=== PATIENT | male | born 1970 | race Caucasian/White ===

== ENCOUNTER 2020-06-05 22:06 | Emergency (ER) | payer BC ==
[2020-06-05] MEDS ORDERED: Sodium Chloride 0.9% 10 ML Syringe FLUSH PRN (22:23)
[2020-06-05] MEDS ORDERED: Sodium Chloride 0.9% 2.5 ML Syringe FLUSH PRN (22:23)
[2020-06-05] MEDS ORDERED: Lactated Ringers 1,000 ML IV ONE (22:47)
--- NOTE | 2020-06-05 22:56 | EDM.PDOC ---
ED HPI GENERAL MEDICAL PROBLEM - General Chief Complaint: General Stated Complaint: NOT FEELING "RIGHT" Time Seen by Provider: 06/05/20 22:07 Source of Information: Reports: Patient, Old Records History Limitations: Reports: No Limitations - History of Present Illness INITIAL COMMENTS - FREE TEXT/NARRATIVE: 50-year-old male with past medical history of asthma presenting with lig htheadedness, chest discomfort, and feeling unwell. Patient states that he is not feeling like himself, he feels like "like I was drugged earlier (but denies any alcohol or drug use. He has been feeling intermittently lightheaded for the past few hours but has not experienced syncope. When he was checking into the emergency department, he had about a 1 to 2-minute episode of substernal chest tightness (similar to my prior asthma attacks). This resolved and has not recurred since. He used his albuterol inhaler one time at home without much relief. At present he only complains of mild lightheadedness. He denies any headache, visual disturbance, facial or extremity numbness or weakness, neck stiffness, dysarthria, dysphasia, gait instability, or shortness of breath. No other complaints at this point. chest pain Pain Score (Numeric/FACES): 1 - Related Data Allergies Allergy/AdvReac Type Severity Reaction Status Date / Time No Known Allergies Allergy Verified 06/05/20 22:12 Home Meds: Home Meds Albuterol [Proventil] 2.5 mg .XX ASDIRECTED PRN 02/20/15 [History] Albuterol [Ventolin HFA] 1 - 2 puff INH ASDIRECTED 06/05/20 [History] Fluticasone Propion/Salmeterol [Advair 250-50 Diskus] 1 puff INH ASDIRECTED 06/05/20 [History] Past Medical History Respiratory History: Reports: Asthma - Infectious Disease History Infectious Disease History: Reports: Chicken Pox - Past Surgical History Musculoskeletal Surgical History: Reports: Other (See Below) Other Musculoskeletal Surgeries/Procedures:: right ankle surgery Social & Family History - Family History Family Medical History: Noncontributory Other Cardiac Family History: Myocardial infarction/CAD - Tobacco Use Smoking Status *Q: Never Smoker - Caffeine Use Caffeine Use: Reports: Energy Drinks - Recreational Drug Use Recreational Drug Use: No ED ROS GENERAL - Review of Systems Review Of Systems: See Below Constitutional: Denies: Fever, Chills HEENT: Denies: Vision Change Respiratory: Denies: Shortness of Breath Cardiovascular: Reports: Chest Pain. Denies: Edema, Palpitations, Syncope Endocrine: Reports: No Symptoms GI/Abdominal: Denies: Abdominal Pain, Hematemesis, Hematochezia, Nausea, Vomiting : Denies: Hematuria Musculoskeletal: Denies: Back Pain Skin: Denies: Rash, Lesions Neurological: Reports: Dizziness. Denies: Confusion, Headache, Numbness, Paresthesia, Seizure, Syncope, Tingling, Trouble Speaking, Difficulty Walking, Weakness, Change in Speech, Gait Disturbance Psychiatric: Reports: No Symptoms Hematologic/Lymphatic: Reports: No Symptoms ED EXAM, GENERAL - Physical Exam Exam: See Below Free Text/Narrative:: Vital signs reviewed. Nursing notes reviewed. Constitutional: Awake, alert, non-distressed. Head: Normocephalic, atraumatic. Eyes: EOMI, conjunctiva normal, no discharge, no scleral icterus. Pupils 3 mm bilaterally Ears, Nose, Throat: External ears and nose normal, moist oral mucosa. No thyromegaly Cardiovascular: 2+ radial pulses bilaterally, capillary refill less than 2 seconds. RRR, no M/R/G Pulmonary: normal work of breathing, no accessory muscle use. CTA BL Abdomen/GI: Soft, nontender, nondistended, no guarding or rigidity, no masses. Musculoskeletal: No deformities. Integumentary: Appropriate color for ethnicity, warm, dry, no pallor or jaundice, no rash. Neurologic: Alert, answering questions appropriately, normal speech, no facial droop, moving all extremities well. Psychiatric: Appropriate mood and affect, normal thought process. EKG INTERPRETATION EKG Interpretation Comments: 12-Lead ECG Interpretation Acquired: 10:15 PM Rhythm: Sinus bradycardia Rate: 55 bpm [place]: Normal Intervals: Normal Ectopy: None Ischemic Changes: None apparent RV Strain: No obvious RV strain pattern. ST Segments/T-Waves: Large appearing but asymmetric T waves in leads V2 through V4 Course - Vital Signs Text/Narrative:: Patient hemodynamically stable, afebrile, well-appearing, looks nontoxic. Differential diagnosis includes but is not limited to: CVA, TIA, acute coronary syndrome, arrhythmia, anemia, electrolyte disturbance, volume depletion, thyroid disease, structural cardiac problem, carotid stenosis, drug or alcohol intoxication, etc. Labs reassuring. Normal hemoglobin, normal electrolytes and renal function, negative troponin, normal LFTs. EKG shows normal intervals, no ectopy or arrhythmia. Chest x-rays are clear. TSH is within normal limits. HEART score 2 (low risk), Wells PE score zero. Low suspicion for acute coronary syndrome given chest pain was fleeting for just 1 to 2 minutes. No objective evidence of myocardial ischemia. Low risk for pulmonary embolism given fleeting nature of pain, lack of tachycardia or hypoxia or tachypnea, no lower extremity swelling. [place] better after receiving IV fluids. No clinical evidence of intoxication. No focal neurologic symptoms to suggest CVA/TIA. No evidence of an acute medical emergency at this point to require admission or further work- up. Plan: Patient is stable to discharge home with outpatient primary care follow- up. Strict emergency department return precautions were provided, patient indicated understanding. All questions were answered prior to departure. Disc harged in good condition. HEART Score for Major Cardiac Events RESULT SUMMARY: 2 points Low Score (0-3 points) Risk of MACE of 0.9-1.7%. INPUTS: History > 0 = Slightly suspicious EKG > 0 = Normal Age > 1 = 45-64 Risk factors > 1 = 1-2 risk factors Initial troponin > 0 = ?normal limit Wells' Criteria for Pulmonary Embolism RESULT SUMMARY: 0.0 points Low risk group: 1.3% chance of PE in an ED population. Another study assigned scores ? 4 as PE Unlikely and had a 3% incidence of PE. INPUTS: Clinical signs and symptoms of DVT > 0 = No PE is #1 diagnosis OR equally likely > 0 = No Heart rate > 100 > 0 = No Immobilization at least 3 days OR surgery in the previous 4 weeks > 0 = No Previous, objectively diagnosed PE or DVT > 0 = No Hemoptysis > 0 = No Malignancy w/ treatment within 6 months or palliative > 0 = No Last Recorded V/S: Last Vital Signs Temp 36.0 C L 06/05/20 22:13 Pulse 58 L 06/05/20 23:10 Resp 20 06/05/20 23:10 BP 128/73 06/05/20 23:10 Pulse Ox 99 06/05/20 23:10 - Orders/Labs/Meds Orders: Active Orders 24 hr Category Date Time Status Cardiac Monitoring [RC] . DIRECTED Care 06/05/20 22:23 Active EKG Documentation Completion [RC] STAT Care 06/05/20 22:23 Active Pulse Oximetry [RC] ASDIRECTED Care 06/05/20 22:23 Active Saline Lock Insert [OM.PC] Stat Oth 06/05/20 22:24 Ordered Labs: Laboratory Tests 06/05/20 06/05/20 06/05/20 Range/Units 22:45 22:45 22:45 WBC 8.87 (4.0-11.0) K/uL RBC 4.57 (4.50-5.90) M/uL Hgb 15.5 (13.0-17.0) g/dL Hct 42.4 (38.0-50.0) % MCV 92.8 (80.0-98.0) fL MCH 33.9 H (27.0-32.0) pg MCHC 36.6 (31.0-37.0) g/dL RDW Std Deviation 43.8 (28.0-62.0) fl RDW Coeff of Adam 13 (11.0-15.0) % Plt Count 235 (150-400) K/uL MPV 10.40 (7.40-12.00) fL Neut % (Auto) 56.0 (48.0-80.0) % Lymph % (Auto) 30.6 (16.0-40.0) % [place] % (Auto) 7.2 (0.0-15.0) % Eos % (Auto) 6.0 (0.0-7.0) % Baso % (Auto) 0.2 (0.0-1.5) % Neut # (Auto) 5.0 (1.4-5.7) K/uL Lymph # (Auto) 2.7 H (0.6-2.4) K/uL [place] # (Auto) 0.6 (0.0-0.8) K/uL Eos # (Auto) 0.5 (0.0-0.7) K/uL Baso # (Auto) 0.0 (0.0-0.1) K/uL Nucleated RBC % 0.0 /100WBC Nucleated RBCs # 0 K/uL Sodium 137 (136-148) mmol/L Potassium 3.5 (3.5-5.1) mmol/L Chloride 102 (98-107) mmol/L Carbon Dioxide 25.9 (21.0-32.0) mmol/L BUN 11 (7.0-18.0) mg/dL Creatinine 1.1 (0.8-1.3) mg/dL Est Cr Clr Drug Dosing 83.39 mL/min Estimated GFR (MDRD) > 60.0 ml/min Glucose 122 H (74-106) mg/dL Calcium 8.8 (8.5-10.1) mg/dL Total Bilirubin 0.9 (0.2-1.0) mg/dL AST 25 (15-37) IU/L ALT 28 (14-63) IU/L Alkaline Phosphatase 68 (46-116) U/L Troponin I < 0.050 (0.000-0.056) ng/mL Total Protein 7.1 (6.4-8.2) g/dL Albumin 3.8 (3.4-5.0) g/dL Globulin 3.3 (2.6-4.0) g/dL Albumin/Globulin Ratio 1.2 (0.9-1.6) TSH 3rd Generation 2.77 (0.36-3.74) uIU/mL Meds: Medications Discontinued Medications Generic Name Dose Route Start Last Admin Trade Name Freq PRN Reason Stop Dose Admin Lactated Ringer's 1,000 mls @ 999 mls/hr 06/05/20 22:47 06/05/20 23:05 Ringers, Lactated IV 06/05/20 23:47 999 mls/hr .BOLUS ONE Administration Sodium Chloride 10 ml 06/05/20 22:23 Saline Flush FLUSH ASDIRECTED PRN Keep Vein Open Sodium Chloride 2.5 ml 06/05/20 22:23 Saline Flush FLUSH ASDIRECTED PRN Keep Vein Open Departure - Departure Time of Disposition: 00:02 Disposition: Home, Self-Care 01 Condition: Good Clinical Impression: Lightheadedness, Atypical chest pain - Discharge Information *PRESCRIPTION DRUG MONITORING PROGRAM REVIEWED*: Not Applicable *COPY OF PRESCRIPTION DRUG MONITORING REPORT IN PATIENT SADE: Not Applicable Instructions: Nonspecific Chest Pain, Adult, Dizziness Referrals: [facility] - Family Practice [Provider Group] - 1 Week (For follow-up of symptoms.) Forms: ED Department Discharge Additional Instructions: Thank you for choosing the [facility] emergency department in [place] for your medical needs today. It was a pleasure caring for you. You were seen in the emergency department for lightheadedness and chest discomfort. Your blood work, EKG, and x-rays look reassuring at this point. The cause of your symptoms is not entirely clear but I am glad you are feeling better. I would like for you to follow-up with the family medicine clinic in the next few days for reevaluation and come back to the ER immediately if you are feeling worse. Please return the emergency department immediately if your symptoms worsen or if you feel worse. The following information is given to patients seen in the emergency department who are being discharged. This information is to outline your options for follow-up care. We provide all patients seen in our emergency department with a follow-up referral. The need for follow-up, as well as the timing and circumstances, are variable depending upon the specifics of your emergency department visit. If you don't have a primary care physician on staff, we will provide you with a referral. We always advise you to contact your personal physician following an emergency department visit to inform them of the circumstance of the visit and for follow-up with them and/or the need for any referrals to a consulting specialist. The emergency department will also refer you to a specialist when appropriate. This referral assures that you have the opportunity for follow-up care with a specialist. All of these measure are taken in an effort to provide you with optimal care, which includes your follow-up. Under all circumstances we always encourage you to contact your private physician who remains a resource for coordinating your care. When calling for follow-up care, please make the office aware that this follow-up is from your recent emergency room visit. If for any reason you are refused follow-up, please contact the [facility] Emergency Department at and asked to speak to the emergency department charge nurse. If you do not have a primary care physician that is caring for you, you can contact these clinics below to set up an appointment to establish care: [facility] Primary [facility] [address] [place] [id number] [facility] [address] [place] [address] Sepsis Event Note (ED) - Evaluation Sepsis Screening Result: No Definite Risk - Focused Exam Vital Signs: Vital Signs Temp Pulse Resp BP Pulse Ox 06/05/20 23:10 58 L 20 128/73 99 06/05/20 22:13 36.0 C L 65 20 136/86 99 - My Orders Last 24 Hours: My Active Orders 06/05/20 22:23 Cardiac Monitoring [RC] . DIRECTED EKG Documentation Completion [RC] STAT Pulse Oximetry [RC] ASDIRECTED 06/05/20 22:24 Saline Lock Insert [OM.PC] Stat - Assessment/Plan Last 24 Hours: My Active Orders 06/05/20 22:23 Cardiac Monitoring [RC] . DIRECTED EKG Documentation Completion [RC] STAT Pulse Oximetry [RC] ASDIRECTED 06/05/20 22:24 Saline Lock Insert [OM.PC] Stat
--- NOTE | 2020-06-05 23:00 | CR ---
INDICATION: Chest discomfort TECHNIQUE: Chest radiograph 2 views COMPARISON: 09/30/19 FINDINGS: Mediastinum: The mediastinum is normal in appearance. The heart silhouette is normal in size and morphology. Lung: Both lungs are unremarkable in appearance. No sign of pleural effusion seen. No pneumothorax is identified. Bone and Soft tissue: Unremarkable for age. IMPRESSION: 1. No acute cardiopulmonary disease is seen. Dictated by: Dougie Alford MD @ 06/05/2020 23:00:00 (Electronically Signed)
[2020-06-05 23:15] LABS: BLOOD UREA NITROGEN,BUN 11 mg/dL (7.0-18.0); CARBON DIOXIDE,CO2 25.9 mmol/L (21.0-32.0); CHLORIDE,CL 102 mmol/L (98-107); GLUCOSE RANDOM 122 mg/dL (74-106); POTASSIUM,K 3.5 mmol/L (3.5-5.1); SODIUM,NA 137 mmol/L (136-148)
[2020-06-06 00:27] VITALS: BP 120/74; PULSE 78
== END 2020-06-06 00:18 | disposition home or self-care (01) ==
LOC: MW.ED 22:06
DX: R07.89 Other chest pain (principal); R42 Dizziness and giddiness; J45.909 Unspecified asthma, uncomplicated; R00.1 Bradycardia, unspecified
CPT/HCPCS: 36415; 71046; 71046-26; 80053; 84443; 84484; 85025; 93005; 96360; 99285-25; J7120

== ENCOUNTER 2022-06-15 19:18 | Emergency (ER) | payer BC ==
[2022-06-15 21:03] VITALS: BP 101/57; PULSE 79
== END 2022-06-15 21:01 | disposition home or self-care (01) ==
LOC: MW.ED 19:18
DX: S99.921A Unspecified injury of right foot, initial encounter (principal); X58.XXXA Exposure to other specified factors, initial encounter
CPT/HCPCS: 73620-26-RT; 73620-RT; 99282; 99283